=== PATIENT | male | born 1960 | race Caucasian/White ===

== ENCOUNTER 2021-01-28 10:40 | Day surgery (SDC) | payer OTHER ==
[~2021-01-28 10:40] MED LIST: AMPICILLIN SODIUM 2 GM in NA CHLORIDE 0.9% 100 ML IVPB SCH
[2021-01-28] MEDS: Gentamicin Inj 160 MG in NA CHLORIDE 0.9% 100 ML IV SCH ×2 (11:00→11:55)
[2021-01-28] MEDS ORDERED: NA CHLORIDE 0.9% 1,000 ML ONE ×2 (11:21→15:27)
[2021-01-28] MEDS ORDERED: FENTANYL CITR 100 MCG/2 ML ONE ×3 (13:12→14:25)
[2021-01-28] MEDS ORDERED: propofoL 200 MG/20 ML VIAL IV ONE ×2 (13:12→15:02)
[2021-01-28] MEDS ORDERED: LIDOCAINE 1% MPF 2 ML AMPULE ONE (13:13)
[2021-01-28] MEDS ORDERED: MIDAZOLAM HCL 2 MG/2 ML INJ ONE (13:13)
[2021-01-28] MEDS ORDERED: ONDANSETRON 4 MG/2 ML VIAL ONE (13:13)
[2021-01-28] MEDS ORDERED: ROCURONIUM 50 MG/5 ML VIAL IV ONE (14:32)
[2021-01-28] MEDS ORDERED: GLYCOPYRROLATE 0.2 MG/ML SYR ONE (15:03)
[2021-01-28] MEDS ORDERED: NEOSTIGMINE 1 MG/ML -5 ML ONE (15:04)
[2021-01-28] MEDS ORDERED: OPIUM/BELLADONNA SUPPOS (30-16.2 MG) PR ONE (15:32)
[2021-01-28] MEDS ORDERED: HYDROCODONE/APAP 10/325 TAB ONE (16:28)
--- NOTE | 2021-01-28 17:10 | OP ---
Surgeon: TA OSPINA Preoperative Diagnoses: 1.Gross hematuria. 2.Bladder lesions. 3.Prostatic urethral papillary tumor. Postoperative Diagnoses: 1.Gross hematuria. 2.Bladder lesions. 3.Prostatic urethral papillary tumor. Principle Procedures: 1.Cystoscopy and bladder biopsies. 2.Transurethral resection of a prostatic urethral tumor. Indication For Procedure: Mr. Saez is a 61-year-old gentleman, who presented to the Urology [facility] with gross hematuria and passing some frothy tissue appearing material in his urine. He underwen t cystoscopic evaluation revealing the presence of erythematous patches within his bladder throughout as well as papillary lesions within his prostatic urethra. 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 CT urography reve aled no evidence of upper tract lesions. As a result, the patient was counseled on the need for oper ative evaluation of the bladder lesions and resection of the one seen within the prostatic urethra. He presents today for that management. Procedure In Detail: The patient was consented in the preoperative holding area before being transfe rred to the operative suite where general anesthesia was induced. He was given ampicillin and gentam icin IV antimicrobial prophylaxis and pneumo boots were provided for DVT prophylaxis. He was placed in the lithotomy position, padded and secured to the table appropriately. His genitalia were prepped using Hibiclens and he was draped in standard fashion. The case was begun using urethral sounds to dilate the urethra and fossa navicularis to 30-Greek. Then, using the visual obturator and a 26-Slade nch Olympus resectoscope and bipolar sheath, the scope was allowed to traverse the urethra and throug h the prostatic urethra before entering the bladder. Noted within the prostatic urethra from the jorge umontanum, which was covered with frondular papillary tumor appearing lesions as well as papillary tu mor noted within the lateral lobes bilaterally, I then entered the bladder which had erythematous muc paloma that was somewhat friable noted throughout. I initially used cold cup biopsy forceps to biopsy t he posterior region of the bladder and an area of suspicion as well as the dome before significant he maturia from the simple biopsy resulted in need to pause the biopsies and fulgurate the lesions. Onc e hemostasis was controlled, I then turned my attention directly to the prostatic urethral lumen wher e the entirety of the lumen involved with tumor was resected largely to clear the affected mucosa. B ecause the verumontanum and the urethra around the verumontanum, particularly on the right side was a lso involved, the verumontanum was also resected as was some of the mucosa just lateral to it on the right side. Care was taken to avoid deep resection in that area because of the proximity to the stri ated sphincter. Once the prostatic urethra mucosa had been resected free of tumor, I then placed the scope back into the bladder. All prostatic urethral chips were removed and sent for pathologic anal ysis as prostatic urethra mucosa. I then completed cold cup biopsy forceps of biopsy sites in the le ft and the right lateral wall as well as an additional site within the dome of suspicion. These were all sent for pathologic analysis. I then gained complete hemostasis of each of the sites using the loop electrode and cautery. The prostatic fossa was again surveyed and any additional oozing vessels were fulgurated to obtain complete hemostasis with the bladder decompressed. I then refilled the bl adder and placed a 22-Greek 3-way Marin catheter into his bladder with ease. 30 mL of sterile water was placed into the balloon, and the patient was then taken out of the lithotomy position. His cath eter was placed to moderate traction and it was connected to CBI with normal saline at a slow drip an d there was clear efflux of fluid. He was then awakened from general anesthesia, transferred to a [facility] and then transferred to the recovery room in good condition. Complications: None. Discharge Disposition: He will follow up on Wednesday with nurse practitioner, Piotr, for voiding tr ial. He will be discharged with a 5-day prescription of antimicrobial to cover him through the voidi ng trial. Subsequent followup should be established with me in the Urology Clinic in about 2 weeks to discuss the results of the pathology and any next steps. WR/MODL Voice ID: [id number] Report ID: [id number]
[2021-01-28 17:28] VITALS: TEMP 96.5; O2SAT 100
[2021-01-28 17:29] VITALS: BP 122/68
== END 2021-01-28 17:10 | disposition home or self-care (01) ==
LOC: OR 10:40
PROVIDERS: ATTEND Urology
PROC: 0VB08ZX Excision of Prostate, Via Natural or Artificial Opening Endoscopic, Diagnostic (ICD-10-PCS; 2021-01-28)
PROC: 0TBB8ZX Excision of Bladder, Via Natural or Artificial Opening Endoscopic, Diagnostic (ICD-10-PCS; principal; 2021-01-28 12:15)
DX: D09.0 Carcinoma in situ of bladder (principal); D07.5 Carcinoma in situ of prostate; E11.9 Type 2 diabetes mellitus without complications; I10 Essential (primary) hypertension; E78.5 Hyperlipidemia, unspecified; Z20.822 Contact with and (suspected) exposure to COVID-19
CPT/HCPCS: 52204; 87088; 87086; 82947 ×2; 88305; 55899; U0003; J2704 ×2; J1580; J2250; J3010 ×3; J2001; J2710; J7030 ×2; J2405; J0290

== ENCOUNTER 2021-04-22 12:45 | Day surgery (SDC) | payer OTHER ==
[2021-04-21 14:45] LABS: Basophils % 0.5 % (0-1.3); Hematocrit 37.4 % (39.6-49.0); Lymphocytes % 21.9 % (15.3-44.8); MPV 9.3 fL (7.6-11.3); RBC Red Blood Cell Count 4.39 M/uL (4.33-5.43)
[2021-04-21 14:46] LABS: Absolute Lymphocytes (CBC) 1.8 K/uL (0.7-4.9)
[2021-04-22] MEDS ORDERED: CEFAZOLIN/SWI 2gm 2 GM/20 ML SYR ONE (13:30)
[2021-04-22] MEDS ORDERED: NA CHLORIDE 0.9% 1,000 ML ONE (13:30)
[2021-04-22] MEDS ORDERED: propofoL 200 MG/20 ML VIAL IV ONE (14:32)
[2021-04-22] MEDS ORDERED: LIDOCAINE 2% MPF 5 ML VIAL ONE (14:32)
[2021-04-22] MEDS ORDERED: FENTANYL CITR 100 MCG/2 ML ONE ×3 (14:32→16:25)
[2021-04-22] MEDS ORDERED: MIDAZOLAM HCL 2 MG/2 ML INJ ONE (14:32)
[2021-04-22] MEDS ORDERED: EPHEDRINE SULF 50 MG/ML VIAL ONE (16:16)
[2021-04-22] MEDS ORDERED: PHENAZOPYRIDINE 100MG TAB PO ONE (17:13)
[2021-04-22] MEDS ORDERED: HYDROCODONE/APAP 5/325 MG TAB PO PRN (17:13)
[2021-04-22] MEDS ORDERED: OPIUM/BELLADONNA SUPPOS (30-16.2 MG) PR ONE (17:13)
[2021-04-22 17:17] VITALS: O2SAT 99
[2021-04-22] MEDS: CODEINE 30MG/APAP 300MG TAB ONE ×2 (17:35→18:20)
[2021-04-22 18:28] VITALS: BP 112/67; TEMP 97.6
--- NOTE | 2021-04-22 20:35 | OP ---
Date of Procedure: 04/22/2021 Surgeon: TA OSPINA Preoperative Diagnoses: 1.CIS/carcinoma in situ of the bladder. 2.CIS/carcinoma in situ of the prostate. Postoperative Diagnoses: 1.CIS/carcinoma in situ of the bladder. 2.CIS/carcinoma in situ of the prostate. Principle Procedures: 1.Cystoscopy and targeted bladder biopsies. 2.Transurethral resection of the prostatic urethra. Indication For Procedure: Mr. Saez is a 61-year-old gentleman with a history of gross hematuria and evidence of CIS, not only in the bladder but within the prostatic urethra that was not invasive into the stroma but was invasive into the ducts. He was counseled extensively about the high risk na ture of this tumor and desired an option for bladder salvage. I counseled them on the limited data t hat would suggest a potential 70% response rate to BCG, and he elected that approach recognizing if i t fails, he may require radical cystoprostatectomy. He underwent an induction course of BCG and pres ents today in followup for restaging bladder biopsies and prostatic urethral biopsies. Procedure In Detail: The patient was consented in the preoperative holding area before being transfe rred to the operative suite where general anesthesia was induced. He was placed in the lithotomy pos ition using Yellofin stirrups, padded and secured to the table appropriately. The case was begun aft er he was given Ancef 2 g IV antimicrobial prophylaxis and his genitalia was prepped using Hibiclens and draped in standard fashion. Using a 22-Vietnamese rigid cystoscope to traverse the urethra and enter the bladder, no papillary mucosal lesions were noted within the prostatic urethra. Within the bladd er, there were multiple spots of erythematous mucosa extending from the right and left lateral llanes posteriorly and into the dome, but sparing the anterior wall of the bladder near the bladder neck. T argeted biopsies were then taken using cold cup biopsy forceps from multiple sites within the dome po sterior, the anterior portion of the dome, the left and the right lateral llanes of the bladder and po steriorly. These were all sent for pathologic analysis. An additional specimen was then taken from a couple of additional areas that were also sent within the prelabeled specimens taken earlier to ens ure adequate sampling of all of the bladder. I then used a Bugbee electrode and sterile water as irr igation to carefully fulgurate each and every one of the biopsy sites and decompressed the bladder in between to ensure complete hemostasis. When there was no oozing from any of the sites with the blad beryl completely decompressed, I then removed the cystoscope and then dilated his meatus and fossa vincenzo cularis to 28-Vietnamese using urethral sounds before passing a 26-Vietnamese bipolar resectoscope into his b ladder and then performing a transurethral resection of the prostate to send those chips for patholog ic analysis as prostatic urethral biopsies/prostate chips. Careful fulguration of the prostatic uret hra was performed until the area was completely hemostatic. I then removed all prostate chips from w ithin the bladder using an Fonix evacuator and confirmed they were all removed cystoscopically before leaving the bladder filled and removing the resectoscope. I then placed a 24-Vietnamese 3-way Marin cat heter into his bladder with some difficulty and required use of a catheter guide due to the right ang le of injury from the bulbar urethra up through his prostatic urethra into the bladder. Once in the bladder, 30 cc of sterile water was placed in the balloon, and the catheter was placed to slow drip C BI and was completely clear in terms of the efflux of irrigation and urine. The catheter was then se cured to his upper thigh without any traction, and he was taken out of the lithotomy position. He wa s then awakened from general anesthesia, transferred to a stretcher, and then transferred to [facility] in good condition. Complications: None. Discharge Disposition: CBI will be weaned over the course of the next hour, and if the urine remains light pink to clear, the patient may be discharged home with the urethral Marin catheter to [facility] region with a floor bag for nighttime use. I have sent him with a prescription for Bactrim Double Strengt h tablets for 5 days to cover him while the catheter is in place, and he should seek a voiding trial in my office on either Wednesday or Wednesday with nurse practitioner, Piotr. Subsequent followup congul d be established with me in 2-3 weeks' time as soon as I return from vacation as it will be critical to discuss the results of this pathology with the patient and determine next steps. WR/MODL Voice ID: [id number] Report ID: [id number]
== END 2021-04-22 18:10 | disposition home or self-care (01) ==
LOC: OR 12:45
PROVIDERS: ATTEND Urology
PROC: 0VT08ZZ Resection of Prostate, Via Natural or Artificial Opening Endoscopic (ICD-10-PCS; 2021-04-22)
PROC: 0TBB8ZX Excision of Bladder, Via Natural or Artificial Opening Endoscopic, Diagnostic (ICD-10-PCS; principal; 2021-04-22 14:00)
DX: D09.0 Carcinoma in situ of bladder (principal); D07.5 Carcinoma in situ of prostate; Z20.822 Contact with and (suspected) exposure to COVID-19
CPT/HCPCS: 52204; 52601; 87088; 85025; 87086; 80048; 36415; 82947; 88305; U0003; J2704; J2250; J3010 ×3; J0690; J7030

== ENCOUNTER 2021-08-05 11:17 | Day surgery (SDC) | payer OTHER ==
[2021-08-01 09:55] LABS: Basophils % 0.7 % (0-1.3); Hematocrit 37.8 % (39.6-49.0); Lymphocytes % 25.1 % (15.3-44.8); MPV 8.7 fL (7.6-11.3); RBC Red Blood Cell Count 4.45 M/uL (4.33-5.43)
[2021-08-01 10:24] LABS: Potassium 4.2 mmol/L (3.5-5.1)
--- NOTE | 2021-08-01 10:26 | RAD REPORT ---
EXAM DESCRIPTION: RAD - Chest Pa And Lat (2 Views) - 08/01/2021 9:55 am CLINICAL HISTORY: PreOp, pending bladder biopsy COMPARISON: January 2021 TECHNIQUE: Frontal and lateral views of the chest were obtained. FINDINGS: The lungs are clear. Heart size is normal and central vasculature is within normal limit s. No pleural effusion or pneumothorax seen. No acute bony finding noted. No aortic abnormality. IMPRESSION: No acute cardiopulmonary process. No significant change from comparison study.
--- NOTE | 2021-08-01 18:23 | EKG ---
Test Date: 2021-08-01 Test Time: 08:25:51 Gas Collection System Operator: MIGEL MEASUREMENT RESULTS: Intervals: Rate: 63 SD: 178 QRSD: 98 QT: 400 QTc: 409 [place]: P: 37 SD: 178 QRS: 63 T: 44 INTERPRETIVE STATEMENTS: Normal sinus rhythm Normal ECG Compared to ECG 01/20/2021 12:36:53 Sinus bradycardia no longer present Electronically Signed On 08-01-21 18:20:58 CDT by Rogelio Baeza
[~2021-08-05 11:17] MED LIST changes: +Gentamicin Inj 200 MG in NA CHLORIDE 0.9% 100 ML IV SCH
[2021-08-05] MEDS ORDERED: NA CHLORIDE 0.9% 1,000 ML ONE (11:45)
[2021-08-05] MEDS ORDERED: CEFAZOLIN/SWI 1gm 1 GM/10 ML SYR ONE (11:46)
[2021-08-05] MEDS ORDERED: propofoL 200 MG/20 ML VIAL IV ONE (14:42)
[2021-08-05] MEDS ORDERED: FENTANYL CITR 100 MCG/2 ML ONE (14:42)
[2021-08-05] MEDS ORDERED: KETOROLAC 30 MG/ML INJ ONE (14:43)
[2021-08-05] MEDS ORDERED: ONDANSETRON 4 MG/2 ML VIAL ONE (14:43)
[2021-08-05] MEDS ORDERED: MIDAZOLAM HCL 2 MG/2 ML INJ ONE (14:43)
[2021-08-05] MEDS ORDERED: dexAMETHasone 10 MG/ML VIAL ONE (14:43)
[2021-08-05] MEDS ORDERED: LIDOCAINE 2% MPF 5 ML VIAL ONE (14:45)
[2021-08-05] MEDS ORDERED: PHENAZOPYRIDINE 100MG TAB PO ONE ×2 (16:28→18:17)
[2021-08-05] MEDS ORDERED: CODEINE 30MG/APAP 300MG TAB PO PRN (16:28)
[2021-08-05 18:07] VITALS: BP 129/72; TEMP 97.2; O2SAT 100
[2021-08-05] MEDS ORDERED: CODEINE 30MG/APAP 300MG TAB ONE (18:17)
--- NOTE | 2021-08-06 02:51 | OP ---
Date of Procedure: 08/05/2021 Surgeon: TA OSPINA Preoperative Diagnoses: 1.History of carcinoma in situ of the bladder and prostate. 2.Erythematous bladder lesions. Postoperative Diagnoses: 1.History of carcinoma in situ of the bladder and prostate. 2.Erythematous bladder lesions. Principle Procedures: 1.Cystoscopy and bladder biopsies with fulguration. 2.Transurethral resection of the prostate/prostatic urethral biopsies. Indication For Procedure: Mr. Saez is a 61-year-old gentleman who presented with gross hematuri a and bladder lesions found to be CIS along with prostatic urethral involvement into the ducts. He w as counseled extensively about the lack of sufficient level 1 evidence to explain the potential risk versus benefit of CIS involving the prosthetic ducts relative to the potential response with BCG. He was also counseled that there was an approximately 70% response rate in a single retrospective joon sis completed. Alternatively, cystectomy would be recommended. He elected intravesical therapy with BCG and underwent an induction course, followed by a cycle of maintenance with cystoscopy, bladder b iopsies, and prostatic urethral resection performed in between. They had no evidence of residual dis ease within his bladder and only some mild evidence of few atypical glands within his prostate prior to the maintenance therapy. On subsequent followup cystoscopic evaluation, there were erythematous r egions throughout the bladder, which could simply be inflammatory from the prior BCG versus recurrenc e of the CIS. As a result, he presents today for definitive evaluation. Procedure In Detail: The patient was consented in the preoperative holding area before being transfe rred to the operative suite where general anesthesia was induced. He was given antimicrobial prophyl axis and pneumo boots were provided for DVT prophylaxis. He was placed in the lithotomy position, pa dded, and secured to the table appropriately. His genitalia were prepped using Hibiclens and draped in standard fashion. The case was begun using a 22-British rigid cystoscope to traverse the urethra a nd into the bladder with ease. The bladder was surveyed in its entirety, and targeted biopsies were identified to points of mucosal erythema identified in the right lateral wall, the right posterolater al wall of the bladder, the posterior wall of the bladder, the left posterior wall of the bladder, th e left lateral wall of the bladder, and from the prostatic urethra. Biopsies were taken from each of these sites using the cold cup biopsy forceps for the bladder with [employer] electrocautery for fulgura tion. I then switched to normal saline irrigation and utilized a resectoscope loop to resect more of the prostatic urethra from the bladder neck to the level of verumontanum at both 5 and 7 o'clock pos itions. These were sent for pathologic analysis. Fulguration of the prostatic urethral sites was pe rformed using the loop, and the bladder was again surveyed with fulguration of any ooze identified. In the end, the bladder was completely hemostatic as was the prostatic urethra; so I decompressed his bladder and removed the scope after ensuring all prostate chips were evacuated. The patient was the n taken out of the lithotomy position, awakened from general anesthesia, transferred to a stretcher, and then transferred to the recovery room in good condition. Complications: None. Discharge Disposition: He will be discharged without a urethral Marin catheter, as was his request i f possible, since relatively minimal prostatic urethral resection was performed, he had been resected on 2 prior occasions within the prostate, and the bladder biopsies were relatively superficial in na ture. Should he have any difficulty voiding, I counseled that specifically he should contact us imme diately for catheter insertion. Otherwise, follow up in 2 to 3 weeks to discuss the results of the p athology of the biopsies, and if no evidence of malignancy is noted, we will plan to continue maintenance BCG with ongoing surveillance unless he changes his mind and wishes to proceed with cysto prostatectomy. FAZRANA/MARTA Voice ID: [id number] Report ID: [id number]
== END 2021-08-05 18:01 | disposition home or self-care (01) ==
LOC: OR 11:17
PROVIDERS: ATTEND Urology
PROC: 0TBB8ZX Excision of Bladder, Via Natural or Artificial Opening Endoscopic, Diagnostic (ICD-10-PCS; principal; 2021-08-05 13:15)
PROC: 0VT08ZZ Resection of Prostate, Via Natural or Artificial Opening Endoscopic (ICD-10-PCS; 2021-08-05 13:15)
DX: D09.0 Carcinoma in situ of bladder (principal); D07.5 Carcinoma in situ of prostate; N40.0 Benign prostatic hyperplasia without lower urinary tract symptoms; E11.9 Type 2 diabetes mellitus without complications; I10 Essential (primary) hypertension; E78.5 Hyperlipidemia, unspecified; Z20.822 Contact with and (suspected) exposure to COVID-19
CPT/HCPCS: 93005; 87088; 85025; 87086; 80048; 36415; 82947 ×2; 88305; 87077 ×2; 87186 ×2; 71046; 52204; 52601; U0003; J2704; J1580; J2250; J3010; J1100; J0690; J7030; J2405; J0290

== ENCOUNTER 2022-01-13 08:23 | Day surgery (SDC) | payer OTHER ==
[2022-01-08 11:16] LABS: Hematocrit 41.3 % (39.6-49.0); Lymphocytes % 27.7 % (15.3-44.8); MPV 8.9 fL (7.6-11.3); RBC Red Blood Cell Count 4.89 M/uL (4.33-5.43)
[2022-01-13] MEDS ORDERED: NA CHLORIDE 0.9% 1,000 ML ONE ×2 (08:39→11:04)
[2022-01-13] MEDS ORDERED: CEFAZOLIN/SWI 2gm 2 GM/20 ML SYR ONE (08:59)
[2022-01-13] MEDS ORDERED: FENTANYL CITR 100 MCG/2 ML ONE (09:52)
[2022-01-13] MEDS ORDERED: propofoL 200 MG/20 ML VIAL IV ONE (09:52)
[2022-01-13] MEDS ORDERED: MIDAZOLAM HCL 2 MG/2 ML INJ ONE (09:53)
[2022-01-13] MEDS ORDERED: LIDOCAINE 1% MPF 5 ML VIAL ONE (09:53)
[2022-01-13] MEDS ORDERED: KETOROLAC 30 MG/ML INJ ONE (10:19)
[2022-01-13] MEDS ORDERED: dexAMETHasone 10 MG/ML VIAL ONE (10:19)
[2022-01-13] MEDS ORDERED: ONDANSETRON 4 MG/2 ML VIAL ONE (10:22)
--- NOTE | 2022-01-13 11:16 | RAD REPORT ---
EXAM DESCRIPTION: RAD - Urethrocystogrphy Retrograde - 01/13/2022 10:57 am CLINICAL HISTORY: CYSTOSCOPY, WITH BLADDER BIOPSIES COMPARISON: No comparisons FINDINGS/IMPRESSION: Seven intraoperative fluoroscopic images were submitted showing cannulation of the ureters and retrograde pyelograms. No filling defects are present within either ureter. No hydron ephrosis. Fluoro time: 23 seconds
[2022-01-13] MEDS ORDERED: CODEINE 30MG/APAP 300MG TAB ONE (12:09)
[2022-01-13 13:02] VITALS: BP 113/74; TEMP 96.9; O2SAT 99
--- NOTE | 2022-01-15 09:00 | OP ---
Surgeon: TA OSPINA Preoperative Diagnoses: 1.History of carcinoma in situ of the bladder. 2.History of carcinoma in situ of the prostate. 3.Status post induction and initial maintenance courses of BCG without definitive recurrence observe d on restaging biopsies. 4.Abnormal genetic urine testing/CX bladder monitor test. Postoperative Diagnoses: 1.History of carcinoma in situ of the bladder. 2.History of carcinoma in situ of the prostate. 3.Status post induction and initial maintenance courses of BCG without definitive recurrence observe d on restaging biopsies. 4.Abnormal genetic urine testing/CX bladder monitor test. Principal Procedure: 1.Cystoscopy with targeted bladder biopsies and fulguration. 2.Bilateral selective ureteral cytologies. 3.Bilateral retrograde pyelography. 4.Prostatic urethral biopsies and fulguration. Indication For Procedure: Mr. Saez presented to the Urology Clinic after an induction and maint enance course of BCG with interval restaging operative cystoscopy with bladder biopsies and prostatic urethral biopsies, identified clearance of his underlying CIS. On his most recent cystoscopic asses sment, where no concerning mucosal lesions were seen, other than some mild postoperative scarring edward nges within the bladder, a CX bladder monitor test was sent with a score of 4.0, which was above the 3.5 cut off where the 97% negative predictive value for recurrence of cancer would have been observed . As a result, after counseling the patient on options, he elected to proceed with definitive surgic al reassessment. Procedure In Detail: The patient was consented in the preoperative holding area before being transfe rred to the operative suite where general anesthesia was induced. He was given Ancef antimicrobial p rophylaxis and pneumo boots were provided for DVT prophylaxis. He was placed in the lithotomy positi on, padded, and secured to the table appropriately. His genitalia were prepped using Hibiclens and d raped in standard fashion. The case was begun using a 22-Telugu rigid cystoscope to traverse the ure thra into the bladder with ease. The prostatic urethra was widely patent in the region of the bladde r neck from prior prostatic urethral biopsy/resections. There was a small frondular papillary lesion just proximal to the verumontanum, which I observed. The remainder of the prostatic urethra was wit hout mucosal lesion or of concern. The bladder was then entered, and was surveyed in its entirety. The ureteral orifices were orthotopic in location and normal in appearance. After mild to moderate d istention of his bladder, there were few areas of hemorrhagic mucosa identified within the right late ral wall, the left lateral wall, and in the dome. As a result, each of these areas was sampled by pe rforming cold cup biopsies under direct vision and then the base of the areas biopsied were fulgurate d to cease any oozing of blood. The remainder of the bladder was completely free of any mucosal lesi on or erythematous spots. As a result, I then utilized a 5-Telugu ureteral access catheter, inserted into the right ureteral orifice, and I injected 10 cc of sterile water and collected the efflux of u rine and fluid, which was sent as right ureteral wash for cytologic analysis. A similar procedure wa s then performed on the left side, this time using a cone-tipped catheter, and the efflux of the flui d and urine was sent as left ureteral wash barbotage for cytology. I then performed a retrograde marty logram bilaterally by injecting a 70:30 mixture of Omnipaque and saline. On each side, the contrast mixture did emanate up the distal into the mid and proximal ureter without any evidence of ureteronep hrosis or filling defect. The renal pelvis was entered bilaterally with the contrast, and there was no pelviectasis or caliectasis, and there was no evidence of filling defect. Each of the calices wer e sharp, and healthy in appearance. As a result, the ureteral access catheters were removed, and the contrast was observed to efflux from each kidney easily. I thus decompressed his bladder of fluid i n urine, removed the cystoscope, took the patient out of the lithotomy position, awakened him from ge neral anesthesia, and then he was transferred to a stretcher before being transferred to the recovery room in good condition. Complications: None. Discharge Disposition: Followup should be established within the next 2 to 3 weeks to discuss the re sults of the biopsies and the ureteral wash cytologies. Subsequent maintenance BCG would then be planned if no evidence of definitive recur rence is seen. FARZANA/MODL Voice ID: [id number] Report ID: [id number]
== END 2022-01-13 12:45 | disposition home or self-care (01) ==
LOC: OR 08:23
PROVIDERS: ATTEND Urology
PROC: 0TB78ZX Excision of Left Ureter, Via Natural or Artificial Opening Endoscopic, Diagnostic (ICD-10-PCS; 2022-01-13)
PROC: 0TB68ZX Excision of Right Ureter, Via Natural or Artificial Opening Endoscopic, Diagnostic (ICD-10-PCS; 2022-01-13)
PROC: 0TBD8ZX Excision of Urethra, Via Natural or Artificial Opening Endoscopic, Diagnostic (ICD-10-PCS; 2022-01-13)
PROC: 0TBB8ZX Excision of Bladder, Via Natural or Artificial Opening Endoscopic, Diagnostic (ICD-10-PCS; principal; 2022-01-13 09:30)
DX: D09.0 Carcinoma in situ of bladder (principal); D07.5 Carcinoma in situ of prostate; Z20.822 Contact with and (suspected) exposure to COVID-19
CPT/HCPCS: 85025; 87086; 80048; 36415; 88108; 82947 ×2; 88305; 74450; 51610; 52204 ×2; 52354; U0002; J2704; J2250; J3010; J1100; J0690; J7030 ×2; J2405; 87088